=== PATIENT | male | born 1960 | race Caucasian/White ===

== ENCOUNTER → 2021-11-07 | Outpatient (CLI) | payer OTHER ==
[~2021-11-07] MED LIST: ALLO300T2 PO; ASP325T PO; BISO1TAB6 PO; GLYB2.5T4 PO; LANS30CA PO; METF-380 PO; MS15TCR PO; OXYC-12 PO; SENN1TAB76 PO; TAMS0.4C2 PO
--- NOTE | 2021-11-07 14:44 | Diagnostic Imaging Report ---
Indication: Chronic right hip pain. FINDINGS: 2 views. Humeral head is in normal articulation with the acetabulum. There is narrowing of the joint space. There is considerable hypertrophic change about the acetabulum as well as hypertrophic change along the base of the femoral head. No fractures are seen. The right SI joint shows marked sclerotic change and hypertrophic lipping. 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 Dictated by: Dictated on workstation # [id number]
== END ==
LOC: RAD FS 10:48
PROVIDERS: ATTEND Emergency Medicine
DX: M16.11 Unilateral primary osteoarthritis, right hip (principal); M53.3 Sacrococcygeal disorders, not elsewhere classified
CPT/HCPCS: 73502